=== PATIENT | male | born 1960 | race Caucasian/White ===

== ENCOUNTER 2016-09-08 09:28 | Outpatient (RCR) | payer OTHER ==
[2016-11-19] MEDS ORDERED: HYDR-3702 PO (00:15)
[2016-11-19] MEDS ORDERED: CEPH-331 PO (00:15)
== END 2016-12-07 | disposition home or self-care (01) ==
LOC: DT 09:28
PROVIDERS: ATTEND Family Medicine
DX: E11.65 Type 2 diabetes mellitus with hyperglycemia (principal)
CPT/HCPCS: 97802

== ENCOUNTER 2016-11-18 22:50 | Emergency (ER) | payer OTHER ==
[~2016-11-18] VITALS: Ht 170.2 cm; Wt 90.4 kg
[2016-11-19] MEDS ORDERED: ED- HYDROcodone/ACETAMINOPHEN 5MG/325MG (NORCO) 6 TABLETS/BTL PO ONE (00:10)
[2016-11-19] MEDS ORDERED: AMOXICILLIN 500 MG (AMOXIL) CAPSULE PO ONE (00:10)
[2016-11-19] MEDS ORDERED: CEPH-331 PO (00:15)
[2016-11-19] MEDS ORDERED: CEPHALEXIN 500 MG (KEFLEX) CAPSULE PO ONE (00:15)
[2016-11-19] MEDS ORDERED: HYDR-3702 PO (00:15)
[2016-11-19 02:47] VITALS: BP 153/74
== END 2016-11-19 01:31 | disposition home or self-care (01) ==
LOC: ED 22:51
DX: K02.9 Dental caries, unspecified (principal)
CPT/HCPCS: 99282; 99283